=== PATIENT | male | born 2005 | race Caucasian/White ===

== ENCOUNTER 2024-08-23 10:59 | Emergency (ER) | payer BC ==
[~2024-08-23] VITALS: Ht 182.9 cm; Wt 81.6 kg
[2024-08-23 11:00] VITALS: BP_SYST 115; PULSE 57; RESP 17; TEMP 97; O2SAT 100
[2024-08-23] MEDS ORDERED: IBUP-1971 PO (11:59)
[2024-08-23] MEDS ORDERED: HYDR-3927 PO (11:59)
[2024-08-23 12:26] VITALS: BP_SYST 149; PULSE 64; RESP 16; TEMP 98; O2SAT 96
== END 2024-08-23 12:25 | disposition home or self-care (01) ==
LOC: SED 10:59
DX: S43.101A Unspecified dislocation of right acromioclavicular joint, initial encounter (principal); Z90.49 Acquired absence of other specified parts of digestive tract; Z79.899 Other long term (current) drug therapy; V89.2XXA Person injured in unspecified motor-vehicle accident, traffic, initial encounter; Y93.89 Activity, other specified; Y92.89 Other specified places as the place of occurrence of the external cause; Y99.8 Other external cause status
CPT/HCPCS: 71045; 73030; 99284